=== PATIENT | female | born 1955 | race Caucasian/White ===

== ENCOUNTER 2016-12-16 19:38 | Inpatient (IN) | payer BC, MEDICAID, SELFPAY ==
[~2016-12-16] VITALS: Ht 172.7 cm; Wt 118.1 kg
[2016-12-16 21:15] VITALS: BP 115/61
[2016-12-16 22:11] LABS: MEAN CORPUSCULAR HEMOGLOBIN 26.5 pg (27.0-33.0); MEAN CORPUSCULAR HGB CONC 30.9 g/dl (32.0-36.5); MEAN CORPUSCULAR VOLUME 85.6 fl (80.0-96.0); RED CELL DISTRIBUTION WIDTH 16.2 % (11.5-14.5); WHITE BLOOD COUNT 8.4 K/mm3 (4.0-10.0)
[2016-12-16] MEDS ORDERED: DICL75TA PO (22:25)
[2016-12-16] MEDS ORDERED: CLAR10CA3 PO (22:25)
[2016-12-16] MEDS ORDERED: CALC600T57 PO (22:25)
[2016-12-16] MEDS ORDERED: ZOLO100T PO (22:25)
[2016-12-16] MEDS ORDERED: NEXI40CA PO (22:25)
[2016-12-16] MEDS ORDERED: VITA100037 PO (22:25)
[2016-12-16] MEDS ORDERED: HYDR-3716 PO (22:25)
[2016-12-16] MEDS ORDERED: LISI-538 PO (22:25)
[2016-12-16] MEDS ORDERED: ZOCO20TA PO (22:25)
[2016-12-16] MEDS ORDERED: PREG50CA PO (22:25)
[2016-12-16 22:29] LABS: ALBUMIN 3.7 GM/DL (3.2-5.2); ALBUMIN/GLOBULIN RATIO 1.16 (1.00-1.93); ALKALINE PHOSPHATASE 88 U/L (45-117); ALT/SGPT 143 U/L (12-78); ANION GAP 9 MEQ/L (8-16); AST/SGOT 212 U/L (15-37); BILIRUBIN,TOTAL 1.2 MG/DL (0.2-1.0); BLOOD UREA NITROGEN 26 MG/DL (7-18); CARBON DIOXIDE LEVEL 27 MEQ/L (21-32); CHLORIDE LEVEL 107 MEQ/L (98-107); CREATININE FOR GFR 0.95 MG/DL (0.55-1.02); GLOMERULAR FILTRATION RATE > 60.0 (>45); GLUCOSE, FASTING 125 MG/DL (80-110); POTASSIUM SERUM 3.6 MEQ/L (3.5-5.1); SODIUM LEVEL 143 MEQ/L (136-145); TOTAL PROTEIN 6.9 GM/DL (6.4-8.2)
[2016-12-16] MEDS ORDERED: PIPERACILLIN/TAZOBACTAM SOD 3.375 GM in D5W MINI-BAG PLUS 50 ML IV SCH (22:30)
[2016-12-16] MEDS ORDERED: MORPHINE 2 MG/ML 1ML SYRINGE IV PRN (22:30)
[2016-12-16 22:48] LABS: RETIC HEMOGLOBIN CONTENT CHr 28.2 PG (24-36); RETICULOCYTE % ADVIA2120 1.5 % (0.5-1.5)
[2016-12-16] MEDS: NS 1,000 ML IV SCH (23:04)
[2016-12-16] MEDS: PERCOCET 5MG/325MG TAB PO PRN (23:05)
[2016-12-16 23:06] LABS: FERRITIN 11 NG/ML (8-252); PERCENT SATURATION 10.9 % (13.2-37.4); TOTAL IRON BINDING CAPACITY 432 UG/DL (250-450)
--- NOTE | 2016-12-16 23:16 | HPE ---
DATE OF ADMISSION: 12/16/2016 PRIMARY CARE PROVIDER: Dr. Fernando Esqueda CHIEF COMPLAINT: Abdominal pain. HISTORY OF THE PRESENT ILLNESS: The patient is a 61-year-old female who has been told for the past year that she has gallbladder disease. She presented to [facility] with two days of right upper quadrant abdominal pain associated with nausea, vomiting and diarrhea. She denies fevers, chills, chest pain, change in diet or similar symptoms in the past. While at their hospital, she was found to have an elevated lipase as well as elevated liver function test and a CT scan had findings concerning for choledocholithiasis and as such, she was transferred to [facility] ([facility]) for gastroenterology evaluation and possible endoscopic retrograde cholangiopancreatography (ERCP). At the present time, the patient tells me her pain is improving. She has not had any further episodes of nausea, vomiting or diarrhea since her arrival. PAST MEDICAL HISTORY: Hypertension. Dyslipidemia. Anxiety. Depression. Neuropathy with chronic low back pain. Gastroesophageal reflux disease. HOME MEDICATIONS: - Nexium 40 mg daily - Browder 7.5-325 twice a day - Lyrica 50 mg by mouth twice a day - sertraline 100 mg daily - simvastatin 20 mg daily - diclofenac one tablet twice a day - lisinopril 20 mg daily - loratadine 10 mg daily PAST SURGICAL HISTORY: Dilation and curettage. Appendectomy. Tonsillectomy. SOCIAL HISTORY: The patient denies alcohol, tobacco or illicit drug use. She lives with her daughter and granddaughter. FAMILY HISTORY: Her daughter has had choledocholithiasis last year and was seen at [facility] at that time. ALLERGIES: The patient has no known drug allergies. REVIEW OF SYSTEMS: Negative other than in the history of the present illness. PHYSICAL EXAMINATION: Temperature 97.5, heart rate 62, blood pressure 120/70, oxygen saturation 94% on room air. GENERAL: She is a morbidly obese, pleasant, female, lying in bed. She appears in no distress. HEENT: Cranial nerves II-XII grossly intact. She has moist mucous membranes. No elevation of central venous pressure (CVP). CARDIOVASCULAR EXAM: S1, S2 regular. RESPIRATORY EXAM: Clear. ABDOMINAL EXAM: Grossly obese. Bowel sounds are present, but she is diffusely tender to palpation. EXTREMITIES: No clubbing, cyanosis or edema. LABORATORY STUDIES: WBC 8.4, hemoglobin 10.8, hematocrit 35.3, platelet count 219. Chemistry panel: Sodium 141, potassium 3.4, chloride 102, bicarbonate 28, BUN 24, creatinine 0.9, glucose 127, AST 301, ALT elevated, lipase elevated CT scan of the abdomen from [facility]: I do not have the report. The images are available on a disc. As per report from the emergency room provider, it was concerning for choledocholithiasis and acute cholecystitis, as well as acute pancreatitis. ASSESSMENT AND PLAN: This is a 61-year-old female with likely choledocholithiasis. Problems: 1. Choledocholithiasis complicated by pancreatitis, possibly cholecystitis with some mild hepatitis. At this time, the patient's symptoms are improving. She has been started on Zosyn at the outside hospital with concern for her being very high risk for ascending cholangitis. For now, will continue her Zosyn, will continue to keep her nothing by mouth. Will start her on IV normal saline. She will be provided with IV narcotics for pain. Will check blood cultures. I have contacted Dr. Ocampo of gastroenterology who has agreed to see the patient in consultation for possible ERCP tomorrow. To be provided with her proton pump inhibitor (PPI) via the IV. 2. Anemia. Unclear etiology. Will check her iron studies. 3. Anxiety/depression. Continue sertraline. 4. Chronic back pain with neuropathy. As mentioned above, she will be provided with narcotics. Will continue her Lyrica. We will hold her diclofenac. 5. Hypertension. Will hold her lisinopril as we are fluid resuscitating her in the setting of pancreatitis and choledocholithiasis. 6. Seasonal allergies. We will hold her loratadine. 7. Dyslipidemia. We are currently holding her simvastatin. 8. Deep vein thrombosis (DVT). She will be provided with Lovenox. DISPOSITION: The patient is admitted to the progressive care unit to Dr. Monteiro's service who will continue seeing the patient at 7:00 a.m. [facility]
[2016-12-16 23:59] VITALS: BP 127/63
[2016-12-17 03:16] VITALS: BP 108/56
[2016-12-17] MEDS: PIPERACILLIN/TAZOBACTAM SOD 3.375 GM in D5W MINI-BAG PLUS 50 ML IV SCH ×3 (03:16→18:49)
[2016-12-17 05:38] LABS: MEAN CORPUSCULAR HEMOGLOBIN 26.3 pg (27.0-33.0); MEAN CORPUSCULAR HGB CONC 30.8 g/dl (32.0-36.5); MEAN CORPUSCULAR VOLUME 85.5 fl (80.0-96.0); RED CELL DISTRIBUTION WIDTH 16.5 % (11.5-14.5); WHITE BLOOD COUNT 7.4 K/mm3 (4.0-10.0)
[2016-12-17 05:59] LABS: ALBUMIN 2.9 GM/DL (3.2-5.2); ALBUMIN/GLOBULIN RATIO 0.97 (1.00-1.93); ALKALINE PHOSPHATASE 71 U/L (45-117); ALT/SGPT 99 U/L (12-78); ANION GAP 10 MEQ/L (8-16); AST/SGOT 117 U/L (15-37); BILIRUBIN,TOTAL 0.9 MG/DL (0.2-1.0); BLOOD UREA NITROGEN 27 MG/DL (7-18); CARBON DIOXIDE LEVEL 26 MEQ/L (21-32); CHLORIDE LEVEL 109 MEQ/L (98-107); CREATININE FOR GFR 0.97 MG/DL (0.55-1.02); GLOMERULAR FILTRATION RATE > 60.0 (>45); GLUCOSE, FASTING 113 MG/DL (80-110); SODIUM LEVEL 145 MEQ/L (136-145); TOTAL PROTEIN 5.9 GM/DL (6.4-8.2)
[2016-12-17] MEDS: NS 1,000 ML IV SCH ×2 (06:50→18:49)
[2016-12-17 08:00] VITALS: BP 115/74
[2016-12-17] MEDS: PANTOPRAZOLE 40MG INJ (PROTONIX) (C9113) IV SCH (08:51)
[2016-12-17] MEDS: ENOXAPARIN 40 MG/0.4 ML SYRINGE (J1650) SC SCH (08:51)
[2016-12-17] MEDS: SERTRALINE 100 MG TAB PO SCH (08:52)
[2016-12-17] MEDS: PREGABALIN 50 MG CAP (LYRICA) PO SCH ×2 (08:52→23:01)
[2016-12-17] MEDS: PERCOCET 5MG/325MG TAB PO PRN ×2 (08:58→15:52)
--- NOTE | 2016-12-17 11:23 | REP ---
MAGNETIC RESONANCE CHOLANGIOPANCREATOGRAPHY: MRCP exam is accomplished utilizing multiple heavily T2-weighted sequences in the axial and coronal plane with MIP reconstruction images. The gallbladder is moderately distended and contains small stones. There does appear to be gallbladder wall thickening and there is edema and free fluid around the gallbladder extending inferiorly. There is mild central intrahepatic biliary dilatation. The common bile duct is dilated up to 8 mm. I cannot exclude a small stone at the ampulla of Vater. Pancreatic duct is normal in caliber. There appears to be edema involving the body of the pancreas suggesting pancreatitis. There is a cyst in the left dome of the liver. Small renal cysts are seen. IMPRESSION: Distended gallbladder with wall thickening and internal calculi. There is surrounding edema and free fluid. The findings are suggestive of cholecystitis. In addition, there is edema involving the pancreatic body suggestive of pancreatitis. The common bile duct is 8 mm in diameter which is mildly dilated. I cannot exclude a small stone at the ampulla of Vater. Signed by Cesario Hansen MD 12/17/2016 04:59 P
--- NOTE | 2016-12-17 14:53 | IPNPDOC ---
Text Note Date of Service The patient was seen on 12/17/16. NOTE Subjective: Pt's abd pain has improved, however still has epigastric and b/l upper quad pain. No N/V. Objective: Vitals: (see below) General: No acute distress, laying comfortably in bed. HEENT: Moist mucous membranes. Neck: No JVD or lymphadenopathy Cardiac: RRR, No murmurs Pulm: Clear to auscultation b/l. No wheezing, rhonchi Abd: Obese. Mild TTP b/l upper quadrants and epigastric region. No rebound guarding or rigidity.ND + BS Ext: No edema or cyanosis Labs (see below) Images: MRCP 12/17/16 read by radiologist IMPRESSION: Distended gallbladder with wall thickening and internal calculi. There is surrounding edema and free fluid. The findings are suggestive of cholecystitis. In addition, there is edema involving the pancreatic body suggestive of pancreatitis. The common bile duct is 8 mm in diameter which is mildly dilated. I cannot exclude a small stone at the ampulla of Vater. Assessment/Plan 1. Acute cholecystitis/pancreatitis with questionable choledocholithiasis- on Zosyn. LFTs trending down. MRCP (see above). GI on board. Cont IVF, pain control. NPO. 2. Anxiety/depression- continue SSRI 3. Chronic back pain with neuropathy - continue home meds 4. Hypertension- hold lisinopril while patient is being resuscitated. 5. Dyslipidemia- on statin DVT prophy: Lovenox VS,Fishbone, I+O VS, Fishbone, I+O Laboratory Tests 12/16/16 21:55 Calcium Level 8.0 L, Aspartate Amino Transf (AST/SGOT) 212 H, Alanine Aminotransferase (ALT/SGPT) 143 H, Alkaline Phosphatase 88, Total Bilirubin 1.2 H, Total Protein 6.9, Albumin 3.7, Red Blood Count 4.01, Mean Corpuscular Volume 85.6, Mean Corpuscular Hemoglobin 26.5 L, Mean Corpuscular Hemoglobin Concent 30.9 L, Red Cell Distribution Width 16.2 H 12/17/16 05:27 Calcium Level 7.0 L, Aspartate Amino Transf (AST/SGOT) 117 H, Alanine Aminotransferase (ALT/SGPT) 99 H, Alkaline Phosphatase 71, Total Bilirubin 0.9, Total Protein 5.9 L, Albumin 2.9 #L, Red Blood Count 3.99 L, Mean Corpuscular Volume 85.5, Mean Corpuscular Hemoglobin 26.3 L, Mean Corpuscular Hemoglobin Concent 30.8 L, Red Cell Distribution Width 16.5 H Vital Signs Date Time Temp Pulse Resp B/P Pulse Ox O2 Delivery O2 Flow Rate FiO2 12/17/16 09:55 18 12/17/16 08:00 98.2 93 115/74 95 Room Air I&O- Last 24 Hours up to 6 AM 12/17/16 06:00 Intake Total 800 ml Output Total 225 ml Balance 575 ml VANDA JUSTICE MD Dec 17, 2016 14:53
[2016-12-17 16:00] VITALS: BP 126/78
[2016-12-17 18:45] VITALS: BP 112/67
[2016-12-17 22:00] VITALS: BP 139/63
[2016-12-18] MEDS: NS 1,000 ML IV SCH ×6 (01:05→23:17)
[2016-12-18 06:00] VITALS: BP 113/69
[2016-12-18] MEDS: PERCOCET 5MG/325MG TAB PO PRN ×4 (06:24→21:27)
[2016-12-18 06:45] LABS: MEAN CORPUSCULAR HEMOGLOBIN 26.1 pg (27.0-33.0); MEAN CORPUSCULAR HGB CONC 30.8 g/dl (32.0-36.5); MEAN CORPUSCULAR VOLUME 84.7 fl (80.0-96.0); RED CELL DISTRIBUTION WIDTH 16.5 % (11.5-14.5); WHITE BLOOD COUNT 13.6 K/mm3 (4.0-10.0)
[2016-12-18 07:07] LABS: ALBUMIN 2.7 GM/DL (3.2-5.2); ALBUMIN/GLOBULIN RATIO 0.75 (1.00-1.93); ALKALINE PHOSPHATASE 73 U/L (45-117); ALT/SGPT 57 U/L (12-78); ANION GAP 13 MEQ/L (8-16); AST/SGOT 43 U/L (15-37); BLOOD UREA NITROGEN 26 MG/DL (7-18); CALCIUM LEVEL 6.9 MG/DL (8.8-10.2); CARBON DIOXIDE LEVEL 20 MEQ/L (21-32); CHLORIDE LEVEL 111 MEQ/L (98-107); CREATININE FOR GFR 0.83 MG/DL (0.55-1.02); GLOMERULAR FILTRATION RATE > 60.0 (>45); GLUCOSE, FASTING 139 MG/DL (80-110); POTASSIUM SERUM 3.3 MEQ/L (3.5-5.1); SODIUM LEVEL 144 MEQ/L (136-145); TOTAL PROTEIN 6.3 GM/DL (6.4-8.2)
[2016-12-18] MEDS ORDERED: POTASSIUM CHLORIDE 10 MEQ SR TABLET PO ONE (08:45)
[2016-12-18] MEDS: ENOXAPARIN 40 MG/0.4 ML SYRINGE (J1650) SC SCH (09:08)
[2016-12-18] MEDS: PANTOPRAZOLE 40MG INJ (PROTONIX) (C9113) IV SCH (09:08)
[2016-12-18] MEDS: PIPERACILLIN/TAZOBACTAM SOD 3.375 GM in D5W MINI-BAG PLUS 50 ML IV SCH ×2 (09:09→16:08)
[2016-12-18] MEDS: PREGABALIN 50 MG CAP (LYRICA) PO SCH ×2 (09:09→20:13)
[2016-12-18] MEDS: SERTRALINE 100 MG TAB PO SCH (09:09)
[2016-12-18] MEDS: ONDANSETRON 4MG/2ML VIAL (J2405) IV PRN ×2 (11:29→22:25)
--- NOTE | 2016-12-18 12:27 | IPNPDOC ---
Text Note Date of Service The patient was seen on 12/18/16. NOTE Subjective: Pt's abd pain has increased today. No N/V. Objective: Vitals: (see below) General: No acute distress, laying comfortably in bed. HEENT: Moist mucous membranes. Neck: No JVD or lymphadenopathy Cardiac: RRR, No murmurs Pulm: Clear to auscultation b/l. No wheezing, rhonchi Abd: Obese. TTP b/l upper quadrants and epigastric region. No rebound guarding or rigidity. ND + BS Ext: No edema or cyanosis Labs (see below) Images: MRCP 12/17/16 read by radiologist IMPRESSION: Distended gallbladder with wall thickening and internal calculi. There is surrounding edema and free fluid. The findings are suggestive of cholecystitis. In addition, there is edema involving the pancreatic body suggestive of pancreatitis. The common bile duct is 8 mm in diameter which is mildly dilated. I cannot exclude a small stone at the ampulla of Vater. Assessment/Plan 1. Acute cholecystitis/pancreatitis with questionable choledocholithiasis- on Zosyn. LFTs/lipase trending down. MRCP (see above). GI on board. Cont IVF, pain control. NPO. Appreciate Surg input. 2. Anxiety/depression- continue SSRI 3. Chronic back pain with neuropathy - continue home meds 4. Hypertension- hold lisinopril while patient is being resuscitated. 5. Dyslipidemia- on statin DVT prophy: Lovenox VS,Fishbone, I+O VS, Fishbone, I+O Laboratory Tests 12/18/16 06:27 Calcium Level 6.9 L, Aspartate Amino Transf (AST/SGOT) 43 H, Alanine Aminotransferase (ALT/SGPT) 57, Alkaline Phosphatase 73, Total Bilirubin 1.0, Total Protein 6.3 L, Albumin 2.7 L, Red Blood Count 4.14, Mean Corpuscular Volume 84.7, Mean Corpuscular Hemoglobin 26.1 L, Mean Corpuscular Hemoglobin Concent 30.8 L, Red Cell Distribution Width 16.5 H Vital Signs Date Time Temp Pulse Resp B/P Pulse Ox O2 Delivery O2 Flow Rate FiO2 12/18/16 12:00 18 Room Air 12/18/16 07:05 99.6 12/18/16 06:00 114 113/69 92 I&O- Last 24 Hours up to 6 AM 12/18/16 06:00 Intake Total 1830 ml Output Total 450 ml Balance 1380 ml VANDA JUSTICE MD Dec 18, 2016 12:27
[2016-12-18 14:00] VITALS: BP 131/72
--- NOTE | 2016-12-18 16:29 | CR ---
DATE OF CONSULTATION: 12/17/2016 REASON FOR CONSULTATION: Abdominal pain. HISTORY OF PRESENT ILLNESS: The patient is a 61-year-old female who presented to [facility] on Tuesday after having 2 days of right upper quadrant abdominal pain. She started to have nausea and vomiting Tuesday evening. Therefore, she went to [facility] on . Because they did not have a surgeon available and they felt that she had acute cholecystitis with significant epigastric pain, she was transferred over here. She was admitted to the hospitalist service with diagnosis of gallstone pancreatitis and likely acute cholecystitis and I was consulted today to evaluate for possible surgical intervention. She has had a MRCP which did not show any significant obstruction. However, could not rule out possibility of a small stone. However, her liver enzymes have improved since admission. Dr. Ocampo has already evaluated the patient and does not plan on doing any type of ERCP at this time. She has had intermittent right upper quadrant pain for the past couple months. She was told she had gallstones in the past. However, has not had any surgical intervention yet. Her symptoms had been pretty intermittent and short lasting up until this past Tuesday. No other trauma to the abdomen. No recent abdominal surgeries. PAST MEDICAL HISTORY: Hypertension, dyslipidemia, anxiety, depression, neuropathy with low back pain, gastroesophageal reflux disease. HOME MEDICATIONS: Please see medical record. PAST SURGICAL HISTORY: Dilatation and curettage (D C), appendectomy, tonsillectomy. ALLERGIES: None. SOCIAL HISTORY: Denies any drug, alcohol, tobacco usage. FAMILY HISTORY: Noncontributory. REVIEW OF SYSTEMS: Pertinent positives and negatives as stated in the history of present illness (HPI). PHYSICAL EXAMINATION: GENERAL: Alert and oriented times three. No acute distress. VITAL SIGNS: Temperature 98.9, pulse 90, respirations 18, blood pressure 126/78, pulse 94% on room air. HEENT: Pupils equally round and reactive to light and accommodation. HEART: S1, S2, regular rate and rhythm. LUNGS: Clear to auscultation bilaterally. ABDOMEN: Soft, tender to palpation epigastric and right upper quadrant. No rebounding, guarding, rigidity. Bowel sounds positive. EXTREMITIES: No clubbing, cyanosis, or edema. LABORATORY DATA: White count 7.4, hemoglobin 10.5, platelets 193, sodium 145, creatinine 0.97, calcium 7, total bilirubin is 0.9 down from 1.2 yesterday, AST 117 down from 212, ALT 99 down from 143. No lipase since this admission. INR is 1. IMAGING STUDIES: Abdomen MRI shows distended gallbladder with wall thickening and cholelithiasis, there is also surrounding edema and free fluid suggestive of acute cholecystitis. There is also edema in the pancreatic body, common bile duct 8 mm which is slightly dilated, and cannot exclude a small stone at the ampulla of Vater on this exam. ASSESSMENT/PLAN: The patient is a 61-year-old female with gallstone pancreatitis and possible choledocholithiasis. She has already been evaluated by GI who is going to watch to see if her symptoms continue to improve. She likely had stones that have already passed through. At this time her liver enzymes are elevated. Her lipase in [facility] was over 20,000. No repeat since then. We will evaluate her lipase in the morning. If her lipase returns back to normal by tomorrow and her pain significantly improves overnight, then we will consider doing surgery this admission. However, if she still shows signs of significant inflammation then we will likely treat her symptomatically for now with IV fluid hydration and just sips of water until the pain improves, then she can be discharged home and we will plan on outpatient surgery in 2 weeks once all the information subsides.
[2016-12-18 23:00] VITALS: BP 134/69
[2016-12-19] MEDS: PIPERACILLIN/TAZOBACTAM SOD 3.375 GM in D5W MINI-BAG PLUS 50 ML IV SCH ×3 (00:44→16:33)
[2016-12-19] MEDS: NS 1,000 ML IV SCH ×5 (02:36→21:18)
[2016-12-19] MEDS: PERCOCET 5MG/325MG TAB PO PRN ×4 (04:40→21:18)
[2016-12-19 06:00] VITALS: BP 139/76
[2016-12-19 06:32] LABS: MEAN CORPUSCULAR HEMOGLOBIN 27.6 pg (27.0-33.0); MEAN CORPUSCULAR HGB CONC 31.8 g/dl (32.0-36.5); MEAN CORPUSCULAR VOLUME 86.6 fl (80.0-96.0); RED CELL DISTRIBUTION WIDTH 17.1 % (11.5-14.5); WHITE BLOOD COUNT 8.1 K/mm3 (4.0-10.0)
[2016-12-19 06:53] LABS: ALBUMIN 2.3 GM/DL (3.2-5.2); ALBUMIN/GLOBULIN RATIO 0.68 (1.00-1.93); ALKALINE PHOSPHATASE 75 U/L (45-117); ALT/SGPT 36 U/L (12-78); ANION GAP 9 MEQ/L (8-16); AST/SGOT 25 U/L (15-37); BILIRUBIN,TOTAL 0.8 MG/DL (0.2-1.0); BLOOD UREA NITROGEN 18 MG/DL (7-18); CARBON DIOXIDE LEVEL 21 MEQ/L (21-32); CHLORIDE LEVEL 112 MEQ/L (98-107); CREATININE FOR GFR 0.62 MG/DL (0.55-1.02); GLOMERULAR FILTRATION RATE > 60.0 (>45); GLUCOSE, FASTING 123 MG/DL (80-110); POTASSIUM SERUM 3.5 MEQ/L (3.5-5.1); SODIUM LEVEL 142 MEQ/L (136-145); TOTAL PROTEIN 5.7 GM/DL (6.4-8.2)
[2016-12-19] MEDS: PANTOPRAZOLE 40MG INJ (PROTONIX) (C9113) IV SCH (08:49)
[2016-12-19] MEDS: ENOXAPARIN 40 MG/0.4 ML SYRINGE (J1650) SC SCH (08:50)
[2016-12-19] MEDS: PREGABALIN 50 MG CAP (LYRICA) PO SCH ×2 (08:50→21:16)
[2016-12-19] MEDS: SERTRALINE 100 MG TAB PO SCH (08:50)
[2016-12-19] MEDS ORDERED: MORPHINE 2 MG/ML 1ML SYRINGE IV PRN (11:00)
[2016-12-19 14:00] VITALS: BP 139/78
--- NOTE | 2016-12-19 14:37 | IPNPDOC ---
Text Note Date of Service The patient was seen on 12/19/16. NOTE Subjective:Abd pain is worse with eating/drinking. Objective: Vitals: (see below) General: No acute distress, laying comfortably in bed. HEENT: Moist mucous membranes. NG tube in place with dried blood. Neck: No JVD or lymphadenopathy Cardiac: RRR, No murmurs Pulm: Clear to auscultation b/l. No wheezing, rhonchi Abd: Obese. TTP in the epigastric and LUQ. No rebound/guarding/rigidity. ND + BS Ext: No edema or cyanosis Labs (see below) Images: MRCP 12/17/16 read by radiologist IMPRESSION: Distended gallbladder with wall thickening and internal calculi. There is surrounding edema and free fluid. The findings are suggestive of cholecystitis. In addition, there is edema involving the pancreatic body suggestive of pancreatitis. The common bile duct is 8 mm in diameter which is mildly dilated. I cannot exclude a small stone at the ampulla of Vater. Assessment/Plan 1. Acute cholecystitis/pancreatitis with questionable choledocholithiasis- on Zosyn. LFTs/lipase trending down. MRCP (see above). GI on board. Cont IVF ( decreased to 150/hr), pain control, morphine added today. NPO except for ice chips. Appreciate Surg input. 2. Anxiety/depression- continue SSRI 3. Chronic back pain with neuropathy - continue home meds 4. Hypertension- hold lisinopril while patient is being resuscitated. 5. Dyslipidemia- on statin DVT prophy: Lovenox Will continue to monitor for improvement. VS,Fishbone, I+O VS, Fishbone, I+O Laboratory Tests 12/19/16 06:02 Calcium Level 7.0 L, Aspartate Amino Transf (AST/SGOT) 25, Alanine Aminotransferase (ALT/SGPT) 36, Alkaline Phosphatase 75, Total Bilirubin 0.8, Total Protein 5.7 L, Albumin 2.3 L, Red Blood Count 3.49 L, Mean Corpuscular Volume 86.6, Mean Corpuscular Hemoglobin 27.6, Mean Corpuscular Hemoglobin Concent 31.8 L, Red Cell Distribution Width 17.1 H Vital Signs Date Time Temp Pulse Resp B/P Pulse Ox O2 Delivery O2 Flow Rate FiO2 12/19/16 10:35 18 Room Air 12/19/16 06:00 99.0 100 139/76 93 I&O- Last 24 Hours up to 6 AM 12/19/16 06:00 Intake Total 4800 ml Output Total 250 ml Balance 4550 ml VANDA JUSTICE MD Dec 19, 2016 14:37
--- NOTE | 2016-12-19 21:02 | CR ---
DATE OF CONSULTATION: 12/17/2016 REASON FOR CONSULTATION: A 61-year white female admitted to [facility] ([facility]) for evaluation of apparent gallstone pancreatitis. The patient had been well until approximately two days prior to admission when she developed episodes of nausea, vomiting, diarrhea and right upper quadrant pain. She had no fevers, night sweats or shaking chills. The patient was presented to [facility] where she had elevated lipase of 21,000 and mild liver function elevations. A CT scan of the abdomen showed gallstones with stranding around the pancreas suggestive for pancreatitis. The patient was referred down here to [facility] for further evaluation and treatment. PAST MEDICAL HISTORY: Positive for hypertension, dyslipidemia, anxiety and depression, neuropathy secondary to low back pain, and reflux. MEDICATIONS: The patient's medications include Nexium, Lyrica, simvastatin and lisinopril. PAST SURGICAL HISTORY: Positive for appendectomy and tonsillectomy. SOCIAL HISTORY: Cigarettes, alcohol and drugs negative. FAMILY HISTORY: Noncontributory to the above problem. ALLERGIES: No known drug allergies. PHYSICAL EXAMINATION: GENERAL: Well-developed, well-nourished white female in no obvious acute distress. She appears her stated age. ABDOMEN: Soft. Slight epigastric tenderness. Mild distension. No hepatosplenomegaly. Bowel sounds were somewhat decreased. RESPIRATORY: Chest was clear to auscultation. CARDIOVASCULAR: Exam showed regular rhythm. No murmurs, gallops. Normal physiological split S1, S2. LABORATORY STUDIES: From [place] again showed a lipase of 21,000. Laboratory studies at [facility] on admission showed a white count of 8400, hemoglobin and hematocrit 10.6 and 34.3. Platelets were 180,000. The patient's hemoglobin and hematocrit are stable. Liver functions at [facility] showed a total bilirubin 1.2, AST was 212, ALT was 143, alkaline phosphatase was 88, albumin 3.71. Liver functions have been trending down over the last several days. Labs from 12/18/2016 showed a bilirubin 1.0, AST was 43, ALT was 57, and alkaline phosphatase still normal at 73, and the patient's lipase is 515, down from 21,000. IMAGING: The patient had an MRCP ordered on 12/17/2016, which showed cholelithiasis and a distended gallbladder with wall thickening. There was suggestion for cholecystitis with edema involving the pancreatic body. Common bile duct was 8 mm in diameter and mildly dilated. No obvious stone was appreciated on the MRCP analysis. PROBLEM: Gallstone pancreatitis. At the present time, the patient's liver functions have rapidly come down to normal. The patient's lipase has improved. It is possible that she may have passed some sand or gravel to trigger the pancreatitis. Plan will be to suggest surgical consultation for consideration for laparoscopic cholecystectomy. At the same time, we will follow the patient's plans and hold on the endoscopic retrograde cholangiopancreatography (ERCP).
[2016-12-19 22:00] VITALS: BP 159/80
[2016-12-20] MEDS: PIPERACILLIN/TAZOBACTAM SOD 3.375 GM in D5W MINI-BAG PLUS 50 ML IV SCH ×3 (01:03→17:07)
[2016-12-20] MEDS: NS 1,000 ML IV SCH (01:04)
[2016-12-20] MEDS: PERCOCET 5MG/325MG TAB PO PRN ×5 (01:45→21:54)
[2016-12-20] MEDS: ONDANSETRON 4MG/2ML VIAL (J2405) IV PRN ×2 (01:46→17:03)
[2016-12-20 06:00] VITALS: BP 140/98
[2016-12-20 06:05] LABS: MEAN CORPUSCULAR HEMOGLOBIN 26.2 pg (27.0-33.0); MEAN CORPUSCULAR HGB CONC 30.6 g/dl (32.0-36.5); MEAN CORPUSCULAR VOLUME 85.7 fl (80.0-96.0); RED CELL DISTRIBUTION WIDTH 16.8 % (11.5-14.5); WHITE BLOOD COUNT 5.7 K/mm3 (4.0-10.0)
[2016-12-20 06:15] LABS: ALBUMIN 2.2 GM/DL (3.2-5.2); ALBUMIN/GLOBULIN RATIO 0.61 (1.00-1.93); ALKALINE PHOSPHATASE 86 U/L (45-117); ALT/SGPT 28 U/L (12-78); ANION GAP 9 MEQ/L (8-16); AST/SGOT 19 U/L (15-37); BILIRUBIN,TOTAL 0.7 MG/DL (0.2-1.0); BLOOD UREA NITROGEN 16 MG/DL (7-18); CALCIUM LEVEL 7.7 MG/DL (8.8-10.2); CARBON DIOXIDE LEVEL 24 MEQ/L (21-32); CHLORIDE LEVEL 112 MEQ/L (98-107); CREATININE FOR GFR 0.66 MG/DL (0.55-1.02); GLOMERULAR FILTRATION RATE > 60.0 (>45); GLUCOSE, FASTING 95 MG/DL (80-110); POTASSIUM SERUM 3.7 MEQ/L (3.5-5.1); SODIUM LEVEL 145 MEQ/L (136-145); TOTAL PROTEIN 5.8 GM/DL (6.4-8.2)
[2016-12-20] MEDS: PREGABALIN 50 MG CAP (LYRICA) PO SCH ×2 (08:44→21:53)
[2016-12-20] MEDS: SERTRALINE 100 MG TAB PO SCH (08:44)
[2016-12-20] MEDS: PANTOPRAZOLE 40MG INJ (PROTONIX) (C9113) IV SCH (08:45)
[2016-12-20] MEDS: ENOXAPARIN 40 MG/0.4 ML SYRINGE (J1650) SC SCH (08:45)
[2016-12-20] MEDS ORDERED: LISINOPRIL *2.5 MG* TAB PO SCH (09:00)
[2016-12-20 14:00] VITALS: BP 139/81
--- NOTE | 2016-12-20 14:13 | IPNPDOC ---
Text Note Date of Service The patient was seen on 12/20/16. NOTE Subjective: Abdominal pain has improved today. Pt is sitting in chair, comfortable. Objective: Vitals: (see below) General: No acute distress, laying comfortably in bed. HEENT: Moist mucous membranes. NG tube in place with dried blood. Neck: No JVD or lymphadenopathy Cardiac: RRR, No murmurs Pulm: Clear to auscultation b/l. No wheezing, rhonchi Abd: Obese. Minimal epigastric and LUQ, improved from yesterday. No rebound/ guarding/rigidity. ND + BS Ext: No edema or cyanosis Labs (see below) Images: MRCP 12/17/16 read by radiologist IMPRESSION: Distended gallbladder with wall thickening and internal calculi. There is surrounding edema and free fluid. The findings are suggestive of cholecystitis. In addition, there is edema involving the pancreatic body suggestive of pancreatitis. The common bile duct is 8 mm in diameter which is mildly dilated. I cannot exclude a small stone at the ampulla of Vater. Assessment/Plan 1. Acute cholecystitis/pancreatitis with questionable choledocholithiasis- on Zosyn. LFTs/lipase trending down. MRCP (see above). GI on board. Off IVF. Pain control, morphine added today. Advancing diet to clears. Appreciate Surg input. 2. Anxiety/depression- continue SSRI 3. Chronic back pain with neuropathy - continue home meds 4. Hypertension- Restart lisinopril 2.5mg daily 5. Dyslipidemia- on statin DVT prophy: Lovenox Will continue to monitor for improvement. VS,Fishbone, I+O VS, Fishbone, I+O Laboratory Tests 12/20/16 05:39 Calcium Level 7.7 L, Aspartate Amino Transf (AST/SGOT) 19, Alanine Aminotransferase (ALT/SGPT) 28, Alkaline Phosphatase 86, Total Bilirubin 0.7, Total Protein 5.8 L, Albumin 2.2 L, Red Blood Count 3.35 L, Mean Corpuscular Volume 85.7, Mean Corpuscular Hemoglobin 26.2 L, Mean Corpuscular Hemoglobin Concent 30.6 L, Red Cell Distribution Width 16.8 H Vital Signs Date Time Temp Pulse Resp B/P Pulse Ox O2 Delivery O2 Flow Rate FiO2 12/20/16 12:32 18 12/20/16 07:36 94 12/20/16 06:00 97.4 93 140/98 12/20/16 02:15 Room Air I&O- Last 24 Hours up to 6 AM 12/20/16 06:00 Intake Total 2310 ml Output Total 400 ml Balance 1910 ml VANDA JUSTICE MD Dec 20, 2016 14:13
--- NOTE | 2016-12-20 15:48 | IPNPDOC ---
Text Note Date of Service The patient was seen on 12/20/16. NOTE Subjective:Abd pain is worse with eating/drinking. Objective: Vitals: (see below) General: No acute distress, laying comfortably in bed. HEENT: Moist mucous membranes. NG tube in place with dried blood. Neck: No JVD or lymphadenopathy Cardiac: RRR, No murmurs Pulm: Clear to auscultation b/l. No wheezing, rhonchi Abd: Obese. TTP in the epigastric and LUQ. No rebound/guarding/rigidity. ND + BS Ext: No edema or cyanosis Labs (see below) Images: MRCP 12/17/16 read by radiologist IMPRESSION: Distended gallbladder with wall thickening and internal calculi. There is surrounding edema and free fluid. The findings are suggestive of cholecystitis. In addition, there is edema involving the pancreatic body suggestive of pancreatitis. The common bile duct is 8 mm in diameter which is mildly dilated. I cannot exclude a small stone at the ampulla of Vater. Assessment/Plan 1. Acute cholecystitis/pancreatitis with questionable choledocholithiasis- on Zosyn. LFTs/lipase trending down. MRCP (see above). GI on board. Cont IVF ( decreased to 150/hr), pain control, morphine added today. NPO except for ice chips. Appreciate Surg input. 2. Anxiety/depression- continue SSRI 3. Chronic back pain with neuropathy - continue home meds 4. Hypertension- hold lisinopril while patient is being resuscitated. 5. Dyslipidemia- on statin DVT prophy: Lovenox Will continue to monitor for improvement. VS,Fishbone, I+O VS, Fishbone, I+O Laboratory Tests 12/20/16 05:39 Calcium Level 7.7 L, Aspartate Amino Transf (AST/SGOT) 19, Alanine Aminotransferase (ALT/SGPT) 28, Alkaline Phosphatase 86, Total Bilirubin 0.7, Total Protein 5.8 L, Albumin 2.2 L, Red Blood Count 3.35 L, Mean Corpuscular Volume 85.7, Mean Corpuscular Hemoglobin 26.2 L, Mean Corpuscular Hemoglobin Concent 30.6 L, Red Cell Distribution Width 16.8 H Vital Signs Date Time Temp Pulse Resp B/P Pulse Ox O2 Delivery O2 Flow Rate FiO2 12/20/16 12:32 18 12/20/16 07:36 94 12/20/16 06:00 97.4 93 140/98 12/20/16 02:15 Room Air I&O- Last 24 Hours up to 6 AM 12/20/16 06:00 Intake Total 2310 ml Output Total 400 ml Balance 1910 ml VANDA JUSTICE MD Dec 20, 2016 15:48
[2016-12-20 22:00] VITALS: BP 147/74
[2016-12-21] MEDS: ONDANSETRON 4MG/2ML VIAL (J2405) IV PRN (00:38)
[2016-12-21] MEDS: PIPERACILLIN/TAZOBACTAM SOD 3.375 GM in D5W MINI-BAG PLUS 50 ML IV SCH ×3 (00:38→16:45)
[2016-12-21] MEDS: PERCOCET 5MG/325MG TAB PO PRN ×3 (02:40→20:39)
[2016-12-21 06:00] VITALS: BP 170/95
[2016-12-21 07:15] LABS: MEAN CORPUSCULAR HEMOGLOBIN 25.5 pg (27.0-33.0); MEAN CORPUSCULAR HGB CONC 29.7 g/dl (32.0-36.5); MEAN CORPUSCULAR VOLUME 85.9 fl (80.0-96.0); RED CELL DISTRIBUTION WIDTH 16.9 % (11.5-14.5)
[2016-12-21 07:38] LABS: ALBUMIN 2.3 GM/DL (3.2-5.2); ALBUMIN/GLOBULIN RATIO 0.58 (1.00-1.93); ALKALINE PHOSPHATASE 113 U/L (45-117); ALT/SGPT 24 U/L (12-78); ANION GAP 9 MEQ/L (8-16); AST/SGOT 18 U/L (15-37); BILIRUBIN,TOTAL 0.5 MG/DL (0.2-1.0); BLOOD UREA NITROGEN 17 MG/DL (7-18); CALCIUM LEVEL 8.6 MG/DL (8.8-10.2); CARBON DIOXIDE LEVEL 27 MEQ/L (21-32); CHLORIDE LEVEL 107 MEQ/L (98-107); CREATININE FOR GFR 0.72 MG/DL (0.55-1.02); GLOMERULAR FILTRATION RATE > 60.0 (>45); GLUCOSE, FASTING 112 MG/DL (80-110); POTASSIUM SERUM 3.2 MEQ/L (3.5-5.1); SODIUM LEVEL 143 MEQ/L (136-145); TOTAL PROTEIN 6.3 GM/DL (6.4-8.2)
[2016-12-21] MEDS: ENOXAPARIN 40 MG/0.4 ML SYRINGE (J1650) SC SCH (08:03)
[2016-12-21] MEDS: PANTOPRAZOLE 40MG INJ (PROTONIX) (C9113) IV SCH (08:04)
[2016-12-21] MEDS: SERTRALINE 100 MG TAB PO SCH (08:04)
[2016-12-21] MEDS: PREGABALIN 50 MG CAP (LYRICA) PO SCH ×2 (08:04→21:52)
[2016-12-21 08:24] LABS: MAGNESIUM LEVEL 1.8 MG/DL (1.8-2.4)
[2016-12-21] MEDS ORDERED: POTASSIUM CHLORIDE 10 MEQ SR TABLET PO SCH (09:00)
[2016-12-21] MEDS: LISINOPRIL 5 MG TAB PO SCH (10:17)
[2016-12-21] MEDS: POTASSIUM CHLORIDE 10 MEQ SR TABLET PO SCH ×2 (10:18→21:52)
[2016-12-21] MEDS ORDERED: LISI-542 PO (13:44)
[2016-12-21 14:00] VITALS: BP 118/61
--- NOTE | 2016-12-21 14:28 | IPN ---
DATE: 12/21/2016 Patient seen and examined. Reported mild right upper quadrant abdominal pain much improved. No nausea, no vomiting. Denies any diarrhea. Tolerating clear liquid diet. Denies any chest pain, pressure or discomfort, fevers or chills. VITAL SIGNS: Temperature 97.7, pulse 98, respiration 18, blood pressure 141/68, pulse ox 94% on room air. LABORATORY DATA: WBC 7, H H 8.8/29.6, platelets 181. Chemistry: Sodium 143, pot 3.2, chloride 107, bicarbonate 27, BUN 17, creatinine 0.72. PHYSICAL EXAMINATION: GENERAL: Patient alert and oriented times three in no acute distress. Comfortable, obese. HEENT: Normocephalic, atraumatic, Moist mucous membranes. NECK: Supple. CARDIAC: Regular rate and rhythm. Normal S1, S2. PULMONARY: Bilaterally clear to auscultation. No wheezing, rales or rhonchi. ABDOMEN: Obese, soft, right upper quadrant mildly tender. No rebound, no guarding. Hypoactive bowel sounds. EXTREMITIES: No edema bilateral lower extremities. ASSESSMENT AND PLAN: This is a 61-year-old female patient with underlying medical history of hypertension, dyslipidemia, obesity, anxiety, depression, neuropathy, chronic lower back pain, gastroesophageal reflux disease, admitted for choledocholithiasis complicated by pancreatitis. PROBLEM: 1. Acute choledocholithiasis complicated by acute pancreatitis. IV fluids initially given. Patient was on Zosyn, lipase trended down. Liver function tests also trending down. MRCP appreciated. GI consulted. Patient currently off IV fluids, advance diet to full liquid. Case discussed with surgery Dr. Jean. If patient tolerates full liquid patient can be discharged tomorrow. Continue pain medication as ordered. 2. Anxiety, depression, continue SSRI. 3. Hypokalemia. Supplement potassium. 4. Hypertension. Continue lisinopril. 5. Dyslipidemia. Continue statin. 6. Obesity complicating care. 7. Deep vein thrombosis prophylaxis, Lovenox subcutaneously. 8. Gastroesophageal reflux disease. Continue PPI. 9. Neuropathy. Continue Lyrica. DISPOSITION: Likely discharged in 24 hours.
[2016-12-21] MEDS ORDERED: LevoFLOXacin 500 MG TABLET PO SCH (18:00)
[2016-12-21] MEDS: metroNIDAZOLE (FLAGYL) 500 MG TAB PO SCH (21:52)
[2016-12-21 22:00] VITALS: BP 134/70
[2016-12-22] MEDS: PERCOCET 5MG/325MG TAB PO PRN (04:05)
[2016-12-22 06:00] VITALS: BP 131/81
[2016-12-22] MEDS: metroNIDAZOLE (FLAGYL) 500 MG TAB PO SCH ×2 (06:02→14:40)
[2016-12-22 07:55] LABS: MEAN CORPUSCULAR HEMOGLOBIN 25.9 pg (27.0-33.0); MEAN CORPUSCULAR HGB CONC 30.3 g/dl (32.0-36.5); MEAN CORPUSCULAR VOLUME 85.3 fl (80.0-96.0); RED CELL DISTRIBUTION WIDTH 17.1 % (11.5-14.5); WHITE BLOOD COUNT 7.7 K/mm3 (4.0-10.0)
[2016-12-22 08:03] LABS: ALBUMIN 2.1 GM/DL (3.2-5.2); ALKALINE PHOSPHATASE 130 U/L (45-117); ALT/SGPT 20 U/L (12-78); ANION GAP 9 MEQ/L (8-16); AST/SGOT 20 U/L (15-37); BILIRUBIN,TOTAL 0.5 MG/DL (0.2-1.0); BLOOD UREA NITROGEN 18 MG/DL (7-18); CALCIUM LEVEL 8.5 MG/DL (8.8-10.2); CARBON DIOXIDE LEVEL 28 MEQ/L (21-32); CHLORIDE LEVEL 104 MEQ/L (98-107); CREATININE FOR GFR 0.65 MG/DL (0.55-1.02); GLOMERULAR FILTRATION RATE > 60.0 (>45); GLUCOSE, FASTING 110 MG/DL (80-110); MAGNESIUM LEVEL 1.7 MG/DL (1.8-2.4); POTASSIUM SERUM 3.6 MEQ/L (3.5-5.1); SODIUM LEVEL 141 MEQ/L (136-145); TOTAL PROTEIN 6.3 GM/DL (6.4-8.2)
[2016-12-22] MEDS ORDERED: POTASSIUM CHLORIDE 10 MEQ SR TABLET PO SCH (09:00)
[2016-12-22] MEDS ORDERED: PANTOPRAZOLE 40MG TAB (PROTONIX) PO SCH (09:00)
[2016-12-22] MEDS ORDERED: MAGNESIUM OXIDE 400 MG TAB (MAG-OX) PO SCH (09:00)
[2016-12-22] MEDS ORDERED: MAG SULF 1GM/100ML (MAG RUN) 1 GM in APPROPRIATE DILUENT 1 EA IV ONE (09:00)
[2016-12-22 09:17] VITALS: BP 148/73
[2016-12-22] MEDS: SERTRALINE 100 MG TAB PO SCH (09:17)
[2016-12-22] MEDS: PANTOPRAZOLE 40MG INJ (PROTONIX) (C9113) IV SCH (09:17)
[2016-12-22] MEDS: LISINOPRIL 5 MG TAB PO SCH (09:17)
[2016-12-22] MEDS: PREGABALIN 50 MG CAP (LYRICA) PO SCH (09:17)
[2016-12-22] MEDS: ENOXAPARIN 40 MG/0.4 ML SYRINGE (J1650) SC SCH (09:17)
--- NOTE | 2016-12-22 10:53 | ECGEPIP ---
Stationary ECG Study [facility] Test Date: 2016-12-22 Pat Name: REGIS SCHWARZ Department: Room: [place] [address] Gender: F Bushler: HAKEEM : 1955 Requested By: JAX QUILES Order Number: [id number] Reading MD: Emiliano Almodovar Measurements Intervals [place] Rate: 99 P: 16 IL: 165 QRS: -14 QRSD: 86 T: 13 QT: 356 QTc: 458 Interpretive Statements SINUS RHYTHM LOW QRS VOLTAGE MODERATE ST DEPRESSION NO PRIOR TRACING IN THE SYSTEM Electronically Signed On 12-22-2016 10:53:19 EDT by Emiliano Almodovar
[2016-12-22] MEDS ORDERED: LEVA500T PO (13:02)
[2016-12-22] MEDS ORDERED: FLAG500T PO (13:02)
[2016-12-22] MEDS ORDERED: POTA10CA PO (13:02)
[2016-12-22] MEDS ORDERED: MAG400TA PO (13:02)
[2016-12-22] MEDS ORDERED: LISI10TA4 PO (13:05)
[2016-12-22 14:00] VITALS: BP 140/80
--- NOTE | 2016-12-23 10:10 | DSES ---
DATE OF ADMISSION: 12/16/2016 DATE OF DISCHARGE: 12/22/2016 PRIMARY CARE PROVIDER: Dr. Fernando Esqueda CARPET CLEANER: Dr. Ocampo GENERAL SURGEON: Dr. Jean FINAL DIAGNOSES: 1. Acute choledocholithiasis complicated by acute pancreatitis. 2. Anxiety. 3. Hypokalemia. 4. Hypertension. 5. Dyslipidemia. 6. Obesity. 7. Gastroesophageal reflux disease (GERD). 8. Peripheral neuropathy. HISTORY OF PRESENT ILLNESS: This is a 61-year-old female patient who has underlying medical history of hypertension, dyslipidemia, anxiety, depression, neuropathy with chronic lower back pain, GERD. The patient has been told for the past year that she has gallbladder disease. Presented to [facility] with two days of right upper quadrant abdominal pain associated with nausea, vomiting, diarrhea. Denies any fevers, chills, chest pain, change in diet or similar symptoms in the past. While at [place], the patient was found to have elevated lipase and has elevated liver function tests and CT scan findings concerning for choledocholithiasis and subsequently the patient was transferred to [facility] for gastrointestinal service and possible endoscopic retrograde cholangiopancreatography (ERCP). The hospitalist service was called for admission. The patient denies any further episodes of nausea, vomiting, diarrhea upon arrival. HOSPITAL COURSE: The patient was admitted to the hospital. Baggage Agent, Dr. Ocampo, has been consulted. IV fluids were given. IV antibiotic had also been given. Liver functions, lipase has been monitored and has improved. MRCP appreciated no obvious stone. Surgery was consulted for hospital cholecystectomy. The patient's diet was advanced. Pain medication was given. Currently, the patient is tolerating a full liquid diet. Antibiotics were switched to oral with only minimal pain and discomfort. The patient, at baseline, is morbidly obese. Case discussed with general surgeon, Dr. Jean, who is okay with discharging the patient on a full liquid diet and for the patient to advance as an outpatient as tolerates. Followup as an outpatient. Home healthcare referral was made for home physical therapy (PT) due to deconditioning. Vital signs: Temperature 98.3, pulse 109. EKG showed sinus tachycardia. Respirations 18. Blood pressure 140/80. Pulse oximetry 94% on room air. LABORATORY DATA: WBC 7.7, hemoglobin 8.7/28.8, platelets 208. Chemistry: Sodium 141, potassium 3.6, chloride 104, bicarbonate 28, BUN 18, creatinine 0.65, magnesium 1.7. DISCHARGE MEDICATIONS: - Levaquin 500 mg by mouth daily for 5 more days - Lisinopril 10 mg by mouth daily - magnesium oxide 400 mg by mouth twice a day for 5 more days - Flagyl 500 mg by mouth every 8 hours, #15 tablets - potassium chloride 20 mEq by mouth daily for 10 more days The patient's home medication continued: - hydrocodone/acetaminophen 7.5/325 mg one tablet by mouth four times a day as needed - calcium - diclofenac 75 mg by mouth twice a day - Nexium 40 mg by mouth daily - Claritin 10 mg by mouth daily - Lyrica 50 mg by mouth twice a day - Zoloft 100 mg by mouth daily - Zocor 20 mg by mouth daily - vitamin D 1000 units by mouth daily DISCHARGE INSTRUCTIONS: The patient is instructed to advance her diet to low fat and low cholesterol as tolerated. Followup with Dr. Jean in 7 to [address] Ocampo in 7 to 10 days and primary care provider in 7 days. Return to the hospital if symptoms worsen. Stay hydrated. Home healthcare referral was made.
== END 2016-12-22 16:31 | disposition home health service (06) ==
LOC: M PCU 21:15 → M MSPAV 12-17 18:33
PROVIDERS: ADMIT Internal Medicine; ATTEND Hospitalist
DX: K80.40 Calculus of bile duct with cholecystitis, unspecified, without obstruction (principal); K85.10 Biliary acute pancreatitis without necrosis or infection; K75.9 Inflammatory liver disease, unspecified; G62.9 Polyneuropathy, unspecified; I10 Essential (primary) hypertension; E78.5 Hyperlipidemia, unspecified; F41.9 Anxiety disorder, unspecified; F32.9 Major depressive disorder, single episode, unspecified; M54.5 Low back pain; E87.6 Hypokalemia; J30.2 Other seasonal allergic rhinitis; E66.9 Obesity, unspecified; D64.9 Anemia, unspecified; K21.9 Gastro-esophageal reflux disease without esophagitis; Z79.891 Long term (current) use of opiate analgesic; Z79.899 Other long term (current) drug therapy; Z68.39 Body mass index [BMI] 39.0-39.9, adult

== ENCOUNTER → 2024-10-02 | Outpatient (CLI) | payer OTHER, MEDICAID ==
[~2024-10-02] MED LIST: CALC600T57 PO; CLAR10CA3 PO; DICL75TA PO; FLAG500T PO; HYDR-3716 PO; LEVA1TAB2 PO; LISI10TA22 PO; LISI20TA33 PO; LISI5TAB11 PO; MAGN400T35 PO; NEXI40CA PO; POTA-136 PO; PREG50CA PO; SIMV-253 PO; VITA100067 PO; ZOLO100T PO
== END ==
LOC: M CARPUL 14:12
PROVIDERS: ATTEND Surgery
DX: K44.9 Diaphragmatic hernia without obstruction or gangrene (principal)

== ENCOUNTER → 2024-10-17 | Outpatient (CLI) | payer OTHER, MEDICAID | LOC: M CARPUL 09:46 | PROVIDERS: ATTEND Surgery | DX: K44.9 Diaphragmatic hernia without obstruction or gangrene (principal) ==